=== PATIENT | female | born 1935 | race Caucasian/White ===

== ENCOUNTER 2016-11-14 14:35 | Emergency (ER) | payer MEDICARE ==
[2016-11-14] MEDS ORDERED: ALBUTEROL/IPRATROPIUM 2.5/0.5 MG 3 ML/EACH DOSE ONE (15:12)
[2016-11-14 15:29] LABS: ABSOLUTE NEUTROPHIL COUNT 8.3 K/mm3 (1.8-7.7); BASO % 0.2 % (0.2-1.0); EOS % 0.1 % (0.9-2.9); HEMATOCRIT 49.1 % (37.0-47.0); HEMOGLOBIN 15.9 gm/l (12.0-16.0); IMM NEUT # 0.1 K/mm3 (0-0.2); IMM NEUT% 0.5 % (0-1); LYMPH # 0.4 (1.0-4.8); MEAN CELL VOLUME 94.4 fl (81.0-99.0); MEAN CORPUSCULAR HEMOGLOBIN 30.6 pg (27.0-31.0); MEAN CORPUSCULAR HGB CONC 32.4 g/dl (33.0-37.0); MEAN PLATELET VOLUME 10.3 fl (7.4-10.4); MONO # 0.7 (0.0-0.8); MONO % 7.2 % (4-12); PLATELET COUNT 193 K/mm3 (130-400); RED CELL DISTRIBUTION WIDTH 14.5 % (11.5-14.5)
[2016-11-14 15:34] LABS: ALB/GLOB RATIO 1.2 (>1.0); ALBUMIN 3.9 gm/dL (3.5-5.7)
[2016-11-14] MEDS ORDERED: METHYLPRED SOD SUCCINATE 125 MG VIAL ONE (15:36)
[2016-11-14 16:11] LABS: VENOUS BLOOD GAS BASE EXCESS 1.4 mmol/L (-2.0-2.0); VENOUS BLOOD GAS HCO3 27.3 mmol/L (22.0-27.0)
--- NOTE | 2016-11-14 16:49 | RAD ---
EXAMINATION:CHEST - 2 VIEWS CLINICAL INDICATION: Shortness of breath. Wheezing and cough. COMPARISON: Prior exam dated 10/27/2014. FINDINGS: Borderline cardiomegaly is again noted. There is a single lead pacemaker. Atherosclerotic change of the thoracic aorta is noted. Small device in the left infrahilar distribution is evident as well. There is no adenopathy identified. There is no pleural effusion. There are prominent bronchovascular markings. Biapical pleural/parenchyma scarring is noted. 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 IMPRESSION: Cardiomegaly with mild to moderate pulmonary vascular congestion. No lobar consolidation or effusion is identified. There are postsurgical changes and senescent changes as described.
[2016-11-14 18:08] LABS: PROTHROMBIN TIME 66.4 SECONDS (9.3-11.4)
[2016-11-14 18:20] LABS: INR 5.76
== END 2016-11-14 17:44 | disposition home or self-care (01) ==
LOC: ED 14:35
DX: J09.X2 Influenza due to identified novel influenza A virus with other respiratory manifestations (principal); J98.01 Acute bronchospasm; R06.02 Shortness of breath; I48.91 Unspecified atrial fibrillation; I10 Essential (primary) hypertension
CPT/HCPCS: 82803; 85025; 80053; 85610; 71020; 87804; 94640; 99283 ×2; 96374; 93005; J2930